=== PATIENT | female | born 1960 | race Hispanic/Latino ===

== ENCOUNTER 2018-12-07 10:14 | Emergency (ER) | payer OTHER, BC ==
[2018-12-07 10:15] VITALS: BMI 26.0
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
[2018-12-07] MEDS ORDERED: Morphine 2 mg/ml ISec IVP STA (11:31)
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
[2018-12-07 14:17] VITALS: BP 131/73; PULSE 80; RESP 17; TEMP 97.7; O2SAT 99
--- NOTE | 2018-12-07 16:02 | RAD ---
Date of service: 12/07/2018 PROCEDURE: Left Wrist Radiographs. HISTORY: r/o FX COMPARISON: None. TECHNIQUE: Three views obtained. FINDINGS: BONES: Normal. No fracture. JOINTS: Degenerative changes at the base of the thumb SOFT TISSUES: Normal. OTHER FINDINGS: None. IMPRESSION: No acute fracture
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
== END 2018-12-07 14:23 | disposition short-term general hospital (02) ==
LOC: ED 10:14
DX: S02.2XXA Fracture of nasal bones, initial encounter for closed fracture (principal); S01.81XA Laceration without foreign body of other part of head, initial encounter; V03.90XA Pedestrian on foot injured in collision with car, pick-up truck or van, unspecified whether traffic or nontraffic accident, initial encounter; Y92.410 Unspecified street and highway as the place of occurrence of the external cause; I10 Essential (primary) hypertension
CPT/HCPCS: 70450; 70486; 71045; 72170; 73110; 74018; 96374; 99285; J2270